=== PATIENT | male | born 1950 | race Caucasian/White ===

== ENCOUNTER → 2016-05-17 | Outpatient (CLI) | payer MEDICARE, OTHER | END | disposition home or self-care (01) | LOC: RESP 13:38 | PROVIDERS: ATTEND Orthopaedic Surgery | DX: Z01.818 Encounter for other preprocedural examination (principal) ==

== ENCOUNTER → 2017-06-07 | Outpatient (CLI) | payer MEDICARE, OTHER | LOC: LAB.O 06-06 14:27 | DX: E11.9 Type 2 diabetes mellitus without complications (principal) ==

== ENCOUNTER → 2018-02-06 | Outpatient (CLI) | payer MEDICARE, OTHER ==
--- NOTE | 2018-02-07 13:55 | CT ---
Procedure: CT LUNG SCREENING Exam Date: 2017. Ordering Provider: Gary Locke Clinical Indication: HISTORY OF TOBACCO USE This patient meets eligibility criteria for low-dose CT lung cancer screening. Comparison: CT scan of the chest without IV contrast 10/28/2016. Technique: Using a multislice scanner, sequential helical axial imaging was obtained in the thorax, 2.5 mm thickness, 2.5 mm separation, from the level of the thoracic inlet through the lung bases without IV contrast. A low dose protocol was utilized: CTDI: 1.75 mGy. 120. kVp. 45 mA. 2D sagittal and coronal reconstructed images, 6.0 mm thickness, were obtained. This exam was performed according to our departmental dose optimization program which includes use of automated exposure control, adjustment of the mA and/or kV according to patient size and/or use of iterative reconstruction technique. Nodule measurements under 10 mm are given as mean value of 3 axes diameters. FINDINGS: Lungs and large airways: Significant amount of artifact due to patient large body habitus and the patient's body contacting the CT gantry bilaterally. No large nodules masses or infiltrates bilaterally. Scarring or atelectasis in the bilateral lower lung bases. Left lower lobe volume significantly decreased compared to right lower lobe. Due to artifact, it is thought that nodules between 4 and 10 mm mean diameter, could be missed. Pleura: Bibasilar pleural thickening. Large left epicardial fat pad versus anterior left hemidiaphragmatic hernia, impressing on the base of the left lung. No effusion bilaterally or pneumothorax. Mediastinum and caden: evaluation limited by low dose technique and lack of IV contrast. No large lesions but smaller lesions could be missed due to artifact. Heart and great vessels: Atherosclerotic calcifications in the aortic arch and proximal right subclavian artery. Small coronary artery calcifications. No significant cardiomegaly or pulmonary vascular congestion. Chest wall, lower neck, axillae: Evaluation also limited by same factors as described above. No gross soft tissue masses not evaluation also limited by large body habitus and gantry artifact. Upper abdomen: Cannot evaluate. Osseous structures: Evaluation limited by low dose MIP technique. Also limited by increased artifact and patient body habitus. Spondylosis of the thoracic spine with mild dextroscoliosis. No large lytic or blastic lesions. IMPRESSION: This study is significantly limited in diagnostic capability due to patient large body habitus and secondarily, patient's body contacting the bilateral sides of the gantry. It is thought that nodules less than 10 mm in diameter could be missed on this study. Bibasilar atelectasis and scarring with large amount of fat in the left base either associated with the epicardium or herniated abdominal fat through the anterior left hemidiaphragm. Unable to determine a lung RADS category on this examination. Electronically signed by: Bossman Sierra MD 02/07/2018 1:54 PM [facility] [employer]
== END ==
LOC: CT 14:00
PROVIDERS: ATTEND Family Medicine
DX: Z87.891 Personal history of nicotine dependence (principal); F17.210 Nicotine dependence, cigarettes, uncomplicated

== ENCOUNTER → 2019-02-08 | Outpatient (CLI) | payer MEDICARE, OTHER ==
--- NOTE | 2019-02-11 12:12 | CT ---
Procedure: CT LUNG SCREENING Exam Date: 02/08/2019. Ordering Provider: Gary Locke Clinical Indication: HISTORY OF TOBACCO USE . Current cigarette smoker. 75 pack years. This patient meets eligibility criteria for low-dose CT lung cancer screening. Comparison: Previous low-dose screening chest CT scan one year ago. Technique: Using a multislice scanner, sequential helical axial imaging was obtained in the thorax, 2.5 mm thickness, 2.5 mm separation, from the level of the thoracic inlet through the lung bases without IV contrast. A low dose protocol was utilized for BMI greater than 30: BMI: 53.2. CTDI: 2.93 mGy. 120. kVp. 45 mA. 2D sagittal and coronal reconstructed images, 6.0 mm thickness, were obtained. This exam was performed according to our departmental dose optimization program which includes use of automated exposure control, adjustment of the mA and/or kV according to patient size and/or use of iterative reconstruction technique. Nodule measurements under 10 mm are given as mean value of 3 axes diameters. Technically difficult study due to patient large body habitus, and artifact created by patient's body contacting the CT gantry wyman. FINDINGS: Lungs and large airways: Stable pleural parenchymal scarring in the inferior lingula and the bilateral lung bases. Small bilateral parenchymal blebs centrilobular and mostly upper lung aragon are stable. Stable left lower lobe volume loss.. Pleura and space: Scattered bilateral pleural thickening with no effusion or pneumothorax. Mediastinum and caden: evaluation limited by low dose technique and lack of IV contrast. Small nodes no dominant soft tissue masses. Heart and great vessels: Calcification brachiocephalic vessels, aortic arch, and coronary vessels. Large amount of fatty tissue in the left anterior epicardial region, similar to the prior study. Chest wall, lower neck, axillae: Evaluation also limited by same factors as described above. Unremarkable and stable. Upper abdomen: Evaluation limited by low-dose technique and artifact from body habitus and CT gantry contact. Nondiagnostic images. Osseous structures: Evaluation limited by low dose MIP technique. Arthrosis in the sternoclavicular joints and sternocostal joints. 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 IMPRESSION: Limited evaluation of the lungs and other thoracic structures included on the study for technical reasons described above. No new nodules and no mass. No focal infiltrates. Improved technique compared to the prior study so this study can be categorized with lung RADS system.. [facility] Best Practice Recommendations: please see below for Lung RADS category and FOLLOW-UP.* *Lung RADS category Category 1 - No nodule or definitely benign nodules (probability of malignancy less than 1%). Follow-up: Continue annual screening with Low Dose Chest CT in 12 months. Electronically signed by: Bossman Sierra MD 02/11/2019 12:10 PM [facility]
== END ==
LOC: CT 14:00
PROVIDERS: ATTEND Family Medicine
DX: Z87.891 Personal history of nicotine dependence (principal)

== ENCOUNTER → 2020-02-13 | Outpatient (CLI) | payer MEDICARE, OTHER ==
--- NOTE | 2020-02-14 12:14 | CT ---
Procedure: CT LUNG SCREENING Exam Date: February 13, 2020. Ordering Provider: Gary Locke Clinical Indication: HX OF TOBACCO USE . Current smoker. 68 pack years. This patient meets eligibility criteria for low-dose CT lung cancer screening. Comparison: Low-dose CT lung cancer screening examination February 2019. Technique: Using a multislice scanner, sequential helical axial imaging was obtained in the thorax, 2.5 mm thickness, 2.5 mm separation, from the level of the thoracic inlet through the lung bases without IV contrast. A low dose protocol was utilized for BMI greater than than 30: BMI: 53. CTDI: 2.91 mGy. 120. kVp. 75 mA. DLP 118 mGy-cm. 2D sagittal and coronal reconstructed images, 6.0 mm thickness, were obtained. This exam was performed according to our departmental dose optimization program which includes use of automated exposure control, adjustment of the mA and/or kV according to patient size and/or use of iterative reconstruction technique. Nodule measurements under 10 mm are given as mean value of 3 axes diameters. Additional limitations to the study due to morbid obesity; patient body contacting the gantry wyman. FINDINGS: Lungs and large airways: Limited visualization has previously described. Bilateral scarring in the bases/bibasilar dependent atelectasis. Chronic volume loss left lower and upper lobes. Pleural-parenchymal scarring right middle lobe and lingula. Pleura and space: No calcifications. Scattered pleural thickening. No acute process. Mediastinum and caden: evaluation limited by low dose technique and lack of IV contrast. Small nodes with no new nodes or dominant soft tissue masses. Heart and great vessels: Coronary artery calcifications. Proximal brachiocephalic calcifications and aortic calcifications are stable. Chest wall, lower neck, axillae: Evaluation also limited by same factors as described above. Limited due to artifact as described previously. No enlarged axillary lymph nodes. Upper abdomen: Evaluation limited by low-dose technique. Unable to evaluate due to artifact Osseous structures: Evaluation limited by low dose MIP technique. Multiple levels of spondylosis. Arthrosis in the glenohumeral and sternoclavicular joints also the sternomanubrial joint. IMPRESSION: 1. Limited study as described above. Bibasilar atelectasis and or scarring. Chronic volume loss left upper lobe and left lower lobe. No new nodules or masses.. [facility] Best Practice Recommendations: please see below for Lung RADS category and FOLLOW-UP.* *Lung RADS category Category 1 - No nodule or definitely benign nodules (probability of malignancy less than 1%). Follow-up: Continue annual screening with Low Dose Chest CT in 12 months. Electronically signed by: Bossman Sierra MD 02/14/2020 12:12 PM [facility]
== END ==
LOC: CT 13:45
PROVIDERS: ATTEND Family Medicine
DX: Z12.2 Encounter for screening for malignant neoplasm of respiratory organs (principal); R91.8 Other nonspecific abnormal finding of lung field; Z87.891 Personal history of nicotine dependence